=== PATIENT | female | born 1930 | race Asian ===

== ENCOUNTER 2016-06-06 15:06 | Emergency (ER) | payer OTHER ==
[2016-06-06 15:13] VITALS: O2SAT 95
--- NOTE | 2016-06-06 15:29 | EDPHY ---
H & P Stated Complaint: Tripped/fell;hit head and injured R arm;past hx ICB,no LOC HPI/ROS: CHIEF COMPLAINT: Fall, head injury HISTORY OF PRESENT ILLNESS: The patient says she was walking in her home today when she tripped and fell. She fell backwards into the right, striking her head on a vase. She did not lose consciousness to her knowledge. She does have a headache on the right side near the temporal region and into the right mandible. [id number] pain. Worse with palpation, movement and opening the mouth. Improved at rest. Does not radiate. No neck pain. No chest or back pain. No nausea or vomiting. No shortness of breath. No abdominal injury. No injury to the left arm or either leg. No pelvic pain. She does have pain in the right forearm that is also mild to moderate. It is difficult to write her sign forms here at the ER due to the pain in the forearm. No other associated complaints or modifying factors. No anticoagulants. REVIEW OF SYSTEMS: Ten systems reviewed and are negative unless otherwise noted in the HPI PERTINENT MEDICAL HISTORY: Prior subdural hematoma status post evacuation remotely EXAMINATION General Appearance: Alert, no distress Head: normocephalic, atraumatic. No Mendes sign. No raccoon eyes. No hematoma. There is tenderness to palpation of the right temporal region Eyes: Pupils equal and round, no conjunctival pallor or injection ENT, Mouth: Mucous membranes moist. Uvula midline. No erythema or edema. Airway is widely patent. Neck: Normal inspection, supple, non-tender. No bony tenderness. No crepitus. No step-off. No deformity. Respiratory: Lungs are clear to auscultation. No wheezing, rhonchi or crackles. Cardiovascular: Regular rate and rhythm. No murmur. Pulses intact distally. Gastrointestinal: Abdomen is soft and nontender Back: non-tender, no bony abnormalities Neurological: A&O, nonfocal, strength is 5/5 in all limbs. No pronator drift. Sensory intact. Skin: Warm and dry, no rash. Ecchymosis over the right temporal region. Extremities: Tenderness to palpation of the right forearm near the distal 1/3. There is no crepitus or deformity. Range of motion is fully intact and symmetric of the lower extremities. Range of motion of the left arm is fully intact. Range of motion of the right arm is intact with tenderness with supination or pronation. Neurovascular intact distal to the right forearm pain. All compartments are soft. Psychiatric: Mood and affect normal DIFFERENTIAL DIAGNOSES: Including but not limited to closed head injury, subdural hematoma, epidural hematoma, basilar skull fracture, concussion, forearm fracture, forearm contusion hematoma MDM: 3:25 p.m. Mechanical fall with closed head injury, headache and right forearm pain. Patient and her daughter are concerned as she had a fall in the past that no CT scan was performed, and she was found to have a subdural hematoma several weeks later. Her neuro exam is within normal limits. Given her injury and her concern, I have ordered a CT scan of the head. She is in no acute distress. 3:50 p.m. Notified by radiologist Dr. Wade. CT scan of the head is unremarkable for acute findings. There are age-related changes. No acute bleed. Forearm X-ray as read by me reveals no acute fracture dislocation. 5:00 p.m. Forearm x-ray reveals a distal radius fracture. She remains neurovascular intact. I will place her in a sugar-tong splint and sling. She remains awake and alert conversing appropriately. Her family had to leave momentarily but will be back to pick her up and she will be discharged to their care. I will refer her to Orthopedics for definitive care for the distal radius fracture. She is comfortable with this plan and discharged home stable condition. 5:45 p.m. Patient's family is now here as well. I have updated them regarding this scenario in the fracture. She will be discharged home to their care follow up with Orthopedics next week. SUPERVISION: This patient was independently evaluated without direct examination by the attending physician. Case was discussed with attending physician. Source: Patient, Family Exam Limitations: No limitations - Personal History Current Tetanus Diphtheria and Acellular Pertussis (TDAP): Unsure - Medical/Surgical History Other PMH: Subdural bleed - Social History Smoking Status: Never smoked Constitutional: Initial Vital Signs Temperature (C) 98.2 F 06/06/16 15:07 Heart Rate 82 06/06/16 15:07 Respiratory Rate 18 06/06/16 15:07 Blood Pressure 156/70 H 06/06/16 15:07 O2 Sat (%) 95 06/06/16 15:07 O2 Delivery Mode Room Air Allergies/Adverse Reactions: Penicillins Allergy (Severe, Verified 06/06/16 15:14) Anaphylaxis NSAIDS (Non-Steroidal Anti-Inflamma Allergy (Mild, Verified 06/06/16 15:14) GI upset procaine [From Novocain] Allergy (Verified 06/06/16 15:14) emycin Allergy (Severe, Uncoded 06/06/16 15:14) Hypotension Home Medications: Medication Instructions Recorded NK [No Known Home Meds] 06/06/16 Medical Decision Making - Diagnostics Imaging: Imaging Impressions Head CT 06/06/16 15:25 Impression: Negative noncontrast CT of the brain. Results called to Dr. Karl Ward at the time of the interpretation. Forearm X-Ray 06/06/16 15:26 Impression: 1. Minimally comminuted transverse fracture of the distal radial metaphysis with possible intra-articular extension. 2. Chondrocalcinosis. 3. Osteopenia Departure - Departure Disposition: Home, Routine, Self-Care Clinical Impression: Distal radius fracture, right Qualifiers: Encounter type: initial encounter Fracture type: closed Fracture morphology: unspecified fracture morphology Qualified Code(s): S52.501A - Unspecified fracture of the lower end of right radius, initial encounter for closed fracture Closed head injury Qualifiers: Encounter type: initial encounter Qualified Code(s): S09.90XA - Unspecified injury of head, initial encounter Condition: Good Instructions: Arm Fracture in Adults (ED), Head Injury (ED) Additional Instructions: Keep splint on at all times until seen by Orthopedics for definitive care. Ice and elevate the extremity. Ibuprofen or Tylenol as needed. The return to ER for worsening pain, sensory changes or increased swelling of the arm Referrals: UNKNOWN,DOCTOR [Other] - As per Instructions Crys Gomes MD [Medical Doctor] - As per Instructions Alexa Ortiz MD [Medical Doctor] - As per Instructions
[2016-06-06 18:31] VITALS: BP 128/64; PULSE 80; RESP 15; TEMP 98.8
== END 2016-06-06 18:31 | disposition home or self-care (01) ==
DX: S52.501A Unspecified fracture of the lower end of right radius, initial encounter for closed fracture (principal); S09.90XA Unspecified injury of head, initial encounter; W01.10XA Fall on same level from slipping, tripping and stumbling with subsequent striking against unspecified object, initial encounter; Y92.009 Unspecified place in unspecified non-institutional (private) residence as the place of occurrence of the external cause; Y93.01 Activity, walking, marching and hiking
CPT/HCPCS: 70450; 73090; 99284; A4565

== ENCOUNTER 2016-06-23 16:07 | Observation (INO) | payer OTHER ==
--- NOTE | 2016-06-23 16:19 | EDPHY ---
H & P Stated Complaint: fall 2 weeks ago/seen in ed/now with increasing cole/nausea Time Seen by Provider: 06/23/16 16:18 - Personal History Current Tetanus/Diphtheria Vaccine: Unsure - Medical/Surgical History Hx Asthma: No Hx Chronic Respiratory Disease: No Hx Diabetes: No Hx Cardiac Disease: No Hx Renal Disease: No Hx Cirrhosis: No Hx Alcoholism: No Hx HIV/AIDS: No Hx Splenectomy or Spleen Trauma: No Other PMH: Subdural bleed - Social History Smoking Status: Never smoked Constitutional: Initial Vital Signs Temperature (C) 36.7 C 06/23/16 16:12 Heart Rate 73 06/23/16 16:12 Respiratory Rate 17 06/23/16 16:12 Blood Pressure 125/59 H 06/23/16 16:12 O2 Sat (%) 95 06/23/16 16:12 O2 Delivery Mode Room Air Allergies/Adverse Reactions: Penicillins Allergy (Severe, Verified 06/23/16 16:12) Anaphylaxis NSAIDS (Non-Steroidal Anti-Inflamma Allergy (Mild, Verified 06/23/16 16:12) GI upset procaine [From Novocain] Allergy (Verified 06/23/16 16:12) emycin Allergy (Severe, Uncoded 06/06/16 15:14) Hypotension Home Medications: Medication Instructions Recorded NK [No Known Home Meds] 06/06/16 Medical Decision Making - Diagnostics Imaging Results: Imaging Impressions Head CT 06/23/16 16:27 Impression: 1. Development of subdural hygroma over the right posterior frontal to anterior parietal lobe superiorly with mild compression upon the underlying parenchyma. There may be stable subdural hygromas over the frontal and parietal lobes just above the sylvian fissure level bilaterally. 2. No hemorrhage, mass effect, or definite acute peripheral infarct. 3. 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 4. Stable moderate atrophy Findings discussed with Osiel Dejesus MD at 17:13 hour, 06/23/2016. ED Course/Re-evaluation: CHIEF COMPLAINT: Headache, nausea. HISTORY OF PRESENT ILLNESS: The patient is an 85-year-old female with a history of subdural hematoma who presents with headache and nausea. She fell 15 and hit her head. She was seen in the ER at that time. She had a negative head CT. She visited a neurologist a week ago and was diagnosed with a concussion. Today her headache and nausea worsening significantly. She admits ataxic gait. REVIEW OF SYSTEMS: A 10 point review of systems was performed and is negative with the exception of the elements mentioned in the history of present illness. PHYSICAL EXAM: HR, BP, O2 Sat, RR. Temp noted General Appearance: Alert, well hydrated, appropriate, and non-toxic appearing. Head: Atraumatic without scalp tenderness or obvious injury Eyes: Pupils equal, round, reactive to light and accommodation, EOMI, no trauma , no injection. Ears: Clear bilaterally, no perforation, normal landmarks Nose: Atraumatic, no rhinorrhea, clear. Throat: There is no erythema or exudates, no lesions, normal tonsils, mucus membranes moist. Neck: Supple, 2+ carotid upstroke, nontender, no lymphadenopathy. Respiratory: No retractions, no distress, no wheezes, and no accessory muscle use. Lungs are clear to auscultation bilaterally. Cardiovascular: Regular rate and rhythm, no murmurs, rubs, or gallops. Bilateral carotid, radial, dorsalis pedis, and posterior tibial pulses intact. Good capillary refill all extremities. Gastrointestinal: Abdomen is soft, nontender, non-distended, no masses, no rebound, no guarding, no peritoneal signs. Musculoskeletal: Normal active ROM of all extremities, atraumatic. Cast on right wrist. Neurological: Alert, appropriate, and interactive. The patient has normal DTRs and non-focal cranial nerves, motor, sensory, and cerebellar exam. Skin: No rashes, good turgor, no nodules on palpation. Past medical history: Right wrist fracture. Past surgical history: Subdural hematoma repair. Family history: N/A. Social history: Here with family. DIAGNOSTICS/PROCEDURES/CRITICAL CARE TIME: Study: CT of the head. Indication: Headache. Results: See Image Results section for official report. The study was read by the radiologist. I viewed the images myself on the PACS system. DIFFERENTIAL DIAGNOSIS: The differential diagnosis for the patient's headache included but was not limited to subarachnoid hemorrhage, migraine headache, tension headache and infectious causes such as meningitis, pharyngitis and sinusitis. MEDICAL DECISION MAKIN-year-old female with a history of subdural hematoma presents with worsening headache and nausea. These symptoms are similar to her previous subdural bleed which was fixed surgically. She did fall and hit her head 06/06 but was seen here and had a negative head CT at this time. An IV was established and labs ordered including CBC, CHEM, PTPTT. Head CT ordered. 1714: CT results conveyed to me by radiology as hypodense subdural hygroma. 1723: Consulted with Dr. Gomez, neurosurgery. She will consult with the patient in the ED. 1728: Consulted with Dr. Smith, hospitalist. He accepts admission. - Data Points Laboratory Results: Laboratory Results 06/23/16 16:40 06/23/16 16:40 06/23/16 06/23/16 06/23/16 16:40 16:40 16:40 WBC 5.69 10^3/uL 10^3/uL (3.80-9.50) RBC 4.25 10^6/uL 10^6/uL (4.18-5.33) Hgb 13.0 g/dL g/dL (12.6-16.3) Hct 38.2 % % (38.0-47.0) MCV 89.9 fL fL (81.5-99.8) MCH 30.6 pg pg (27.9-34.1) MCHC 34.0 g/dL g/dL (32.4-36.7) RDW 12.1 % % (11.5-15.2) Plt Count 269 10^3/uL 10^3/uL (150-400) MPV 9.0 fL fL (8.7-11.7) Neut % (Auto) 57.2 % % (39.3-74.2) Lymph % (Auto) 32.0 % % (15.0-45.0) Clarke % (Auto) 6.9 % % (4.5-13.0) Eos % (Auto) 2.8 % % (0.6-7.6) Baso % (Auto) 0.7 % % (0.3-1.7) Nucleat RBC Rel Count 0.0 % % (0.0-0.2) Absolute Neuts (auto) 3.26 10^3/uL 10^3/uL (1.70-6.50) Absolute Lymphs (auto) 1.82 10^3/uL 10^3/uL (1.00-3.00) Absolute Monos (auto) 0.39 10^3/uL 10^3/uL (0.30-0.80) Absolute Eos (auto) 0.16 10^3/uL 10^3/uL (0.03-0.40) Absolute Basos (auto) 0.04 10^3/uL 10^3/uL (0.02-0.10) Absolute Nucleated RBC 0.00 10^3/uL 10^3/uL (0-0.01) Immature Gran % 0.4 % % (0.0-1.1) Immature Gran # 0.02 10^3/uL 10^3/uL (0.00-0.10) PT 13.4 SEC SEC (12.0-15.0) INR 1.03 (0.83-1.16) APTT 28.2 SEC SEC (23.0-38.0) Sodium 140 mEq/L mEq/L (134-144) Potassium 4.0 mEq/L mEq/L (3.5-5.2) Chloride 107 mEq/L mEq/L (97-110) Carbon Dioxide 24 mEq/l mEq/l (22-31) Anion Gap 9 mEq/L mEq/L (8-16) BUN 19 mg/dL mg/dL (7-23) Creatinine 0.8 mg/dL mg/dL (0.6-1.0) Estimated GFR > 60 Glucose 102 mg/dL H mg/dL (70-100) Calcium 9.3 mg/dL mg/dL (8.5-10.4) Departure - Departure Disposition: [facility] Clinical Impression: Subdural hygroma Condition: Fair Referrals: SRINI GANDARA [Primary Care Provider] - As per Instructions Report Scribed for: Osiel Dejesus Report Scribed by: Dhaval Alfaro Date of Report: 06/23/16 Time of Report: 17:14
[2016-06-23 16:53] LABS: % IMMATURE GRANULYOCYTES 0.4 % (0.0-1.1); ABSOLUTE IMMATURE GRANULOCYTES 0.02 10^3/uL (0.00-0.10); ADD DIFF? NO; ADD MORPH? NO; ADD SCAN? NO; ATYPICAL LYMPHOCYTE FLAG 30 (0-99); FRAGMENT RBC FLAG 0 (0-99); HEMATOCRIT 38.2 % (38.0-47.0); LEFT SHIFT FLG 0 (0-99); LIPEMIA HEMOLYSIS FLAG 90 (0-99); MEAN CELL HEMOGLOBIN 30.6 pg (27.9-34.1); MEAN CELL VOLUME 89.9 fL (81.5-99.8); PLATELET CLUMPS FLAG 0 (0-99); PLATELET COUNT 269 10^3/uL (150-400); RED BLOOD CELL COUNT 4.25 10^6/uL (4.18-5.33); RED CELL DISTRIBUTION WIDTH 12.1 % (11.5-15.2)
[2016-06-23 17:04] LABS: INR 1.03 (0.83-1.16); PROTIME(PATIENT) 13.4 SEC (12.0-15.0)
[2016-06-23 17:05] LABS: APTT 28.2 SEC (23.0-38.0)
[2016-06-23 17:09] LABS: ANION GAP 9 mEq/L (8-16); CALCIUM 9.3 mg/dL (8.5-10.4); CARBON DIOXIDE 24 mEq/l (22-31); CHLORIDE 107 mEq/L (97-110); CREATININE 0.8 mg/dL (0.6-1.0); GLOMERULAR FILTRATION RATE > 60; GLUCOSE 102 mg/dL (70-100); SODIUM 140 mEq/L (134-144)
[2016-06-23 19:03] LABS: COLOR YELLOW; LEUKOCYTE ESTERASE,URINE 1+ (NEGATIVE); NITRITE,URINE POSITIVE (NEGATIVE)
--- NOTE | 2016-06-23 19:06 | GHP ---
[f rep st] HISTORY AND PHYSICAL DATE OF ADMISSION: 06/23/2016 CHIEF COMPLAINT: Headache. HISTORY OF PRESENT ILLNESS: This is an 85-year-old female with a previous history of a subdural hem atoma drainage in 2009 at the [facility] who has had chronic headache, she cannot describe for how long. However, her headaches did proceed a fall approximately 2 weeks ago. She s tates the fall 2 weeks ago occurred because she began speeding up her gait and was unable to catch h erself, and fell. She fell, broke her wrist, and did strike her head losing consciousness. She had a head CT at that point in time which revealed bilateral subdural hygromas, right greater than left , approximately a centimeter and 5 mm. She was discharged home after treating her wrist fracture an d was seen by Neurology for concussion. She states that she has continued to have intermittent head aches with no particular exacerbating factors. It is not worse any time of the day or any particula r position. It is not associated with photophobia or phonophobia, but over the last couple of days they have gotten mildly worse and are associated with some nausea, so she decided to come in. She h ad a repeat head CT that revealed stable bilateral hygromas. She denies any fevers, chills, nausea, vomiting, or neck stiffness. She denies any numbness, tingling, weakness, vision changes, slurred speech, loss of control of bowel or bladder, or any other complaints of pain. PAST MEDICAL HISTORY: Positive for subdural hematoma, concussion, and distal radius fracture. PAST SURGICAL HISTORY: Includes bur hole evacuation of subdural hematoma, and tonsillectomy. SOCIAL HISTORY: She lives independently. Her children are at bedside. She denies any alcohol, tob acco, or illicit drugs. PAST FAMILY MEDICAL HISTORY: There is no history of coagulopathies or other contributing factors. ALLERGIES: To penicillins, NSAIDs, procaine, and erythromycin. HOME MEDICATIONS: No home medications. REVIEW OF SYSTEMS: Complete 12 point review of systems performed by myself was negative, except as stated above. VITAL SIGNS: Blood pressure is 146/74, respiratory rate 16, heart rate is 84, her temp is 36.6, sat urating 98% on room air. LABORATORY DATA: White blood cell count 5.69, hemoglobin 13, hematocrit 38.2, platelets are 269. P T is 13.4, INR is 1.03, PTT is 28.2. Sodium 140, potassium 4.0, chloride 107, CO2 of 24, BUN 19, cr eatinine 0.8, glucose 102. Head CT reveals bilateral subdural hygromas that are stable compared to June 08, 2016, just above t he left sylvian fissure over the frontal and anterior parietal lobes, measuring approximately 10 mm on the right and 6 mm on the left. There is some mild mass effect on the parenchyma; however, there is no shift. Ventricle cisterns and sulci are widely consistent with stable moderate atrophy. No hydrocephalus, masses, midline shift, herniation, or subdural hematoma. No intraparenchymal hemorrh age or mass effect. Stable to moderate hypodensities in the white matter of bilateral cerebral taya spheres. There is no acute peripheral cerebral infarct. Anterior sclerotic calcifications are note d in the distal ICA in the parasellar location bilaterally. Bone windows reveal no fractures. PHYSICAL EXAMINATION: She is alert, oriented x3. Pupils are equal, round, reactive to light and ac commodation. External ocular muscles are intact. There is no facial asymmetry or tongue deviation. Sensation is intact V1, V2, V3 distributions of the 5th cranial nerve bilaterally. Strength is 5/ 5 to bilateral deltoids, biceps, triceps, left wrist flexors, wrist extensors, and hand intrinsics. The right wrist is immobilized. Strength is 5/5 to bilateral iliopsoas, quadriceps, hamstrings, do rsiflexors, plantar flexors, EHLs. DTRs are +2/4 biceps and left brachioradialis, patellar, and Ach illes. She has no drift. She has no Mendoza's or clonus. IMPRESSION AND PLAN: This is an 85-year-old female with mild headache and bilateral subdural hygrom as that are relatively stable compared with June 08. She has had headache prior to her fall and I think these are nontraumatic in nature. Given the fact that she has had a mild increase in headache , it would be reasonable at her age to watch her overnight. Did discuss the possibility of trying s ome tranexamic acid; however, these collections are not blood, they are likely CSF and likely not to resorb. We will at least attempt it as she has no contraindications to see if this will help mitig ate some of her complaints and she will likely be discharged in the morning. No repeat head CT. Pl ease call with any changes in neurologic status. /[id number]/MODL
[2016-06-23 19:13] LABS: BACTERIA TRACE /hpf (NONE SEEN); MUCUS TRACE /lpf (NONE-1+); WBC,URINE 25-50 /hpf (0-3)
[2016-06-23 19:14] LABS: RBC,URINE NONE SEEN /hpf (0-3)
[2016-06-23] MEDS ORDERED: CALCIUM CARBONATE 500 MG CHEWABLE TAB PO PRN (21:54)
[2016-06-23] MEDS ORDERED: ACETAMINOPHEN 500 MG TAB PO PRN (21:54)
[2016-06-23] MEDS ORDERED: ONDANSETRON 4 MG/2 ML VIAL IVP PRN (21:54)
[2016-06-23] MEDS ORDERED: ACETAMINOPHEN 325 MG TAB PO PRN (21:54)
[2016-06-23] MEDS ORDERED: ONDANSETRON DISINTEGRATING 4 MG TAB PO PRN (21:54)
--- NOTE | 2016-06-23 22:41 | GHP ---
[f rep st] HISTORY AND PHYSICAL DATE OF ADMISSION: 06/23/2016 HISTORY: The patient is a pleasant 85-year-old female with history of remote subdural hematoma and chronic headaches, who presents with worsening headache, as well as an episode of nausea this mornin g. Her nausea got worse, and then she had a bowel movement, and then she felt better. She did fall 2 weeks ago and was seen here in our emergency department where a scan at that time showed what was read as negative noncontrast CT of the brain, other than atrophy with bilateral subdural hygromas, without evidence of acute hemorrhage. I have compared the CT [id number] myself, and it does appea r that the scan represents larger hygromas today, more on that in the imaging section of this Histor y and Physical. She was seen by Neurosurgery, who felt that they were stable compared to a couple o f weeks ago, noting mild mass effect, no shift. The patient has not had diarrhea, fever, chills, sputum, or shortness of breath. REVIEW OF SYSTEMS: Complete 10-point review of systems has been documented, negative except as note d in the HPI. PAST MEDICAL HISTORY: Subdural hematoma 6 years ago. ALLERGIES: Penicillin, NSAIDs, procaine, erythromycin. HOME MEDICATIONS: Multivitamin, vitamin B12, vitamin D3, calcium carbonate, and Tylenol. SOCIAL HISTORY: She lives at the [facility]. Nonsmoker, nondrinker. Family present at the bedside. FAMILY HISTORY: Parents . PHYSICAL EXAMINATION: VITAL SIGNS: Temp 36.7, blood pressure 141/86, pulse 74, breathing 16 times a minute, 96% on room air. GENERAL: No acute distress. HEENT: Sclerae anicteric. Oropharynx abbie ar. Mucous membranes moist. NECK: Supple without lymphadenopathy or JVD. LUNGS: Clear to auscul tation bilaterally. HEART: S1, S2 without murmurs. ABDOMEN: Soft, nontender, nondistended. LOWE R EXTREMITIES: Without edema. Calves nontender. SKIN: Without rash. NEUROLOGIC: Grossly nonfoc al. LABORATORY VALUES: Sodium 140, potassium 4.0, chloride 107, bicarb 24, BUN 19, creatinine 0.8, gluc ose 102. UA showed 25-50 white cells, otherwise unremarkable. Coags normal. White count 5.7, hematocrit 38, platelets 269. Noncontrast head CT shows what appeared to me and the ER doctor to be enlarging subdural hygromas; h owever, Neurosurgery has a different opinion. I have discussed the case with Dr. [facility]iel [facility]. ASSESSMENT/PLAN: An 85-year-old female with history of subdural and chronic headache here, with pos sibly enlarging subdural hygromas. 1. Subdural hygromas. Neurosurgery has seen the patient and feels that additional imaging is not n eeded. Will follow clinically. She does not suspect active bleeding, although she did suggest reynolds examic acid, although it has not been ordered. I will leave this to the discretion of Neurosurgery. 2. Nausea. It is unclear what to make of this; this seems to be a chronic problem. She does not h ave midline shift or hypertension or other evidence of elevated intracranial pressure. 3. Chronic headache. Will continue her scheduled Tylenol. 4. Prophylaxis. Pharmacologic prophylaxis contraindicated given her subdural. 5. Disposition: Observation status. Will have PT and OT see her. /[id number]/MODL
--- NOTE | 2016-06-24 07:49 | NEUSURGPN ---
Assessment/Plan: 85 yo female with headache (present prior to fall). Head CT with bilateral subdural hygromas - neuro stable - recommend tranexamic acid 650 mg po BID to help absorb the subdural hygromas ( ordered, and script in chart) - no surgical intervention - plan for repeat head CT in 3-4 weeks (script in chart) - ok for discharge per neurosurgery Discussed with Dr. Gomez Subjective: Headaches comes and goes. Admits to nausea. Objective: Awake. Alert. PERRL Facial expression symmetrical Muscle strength full Following commands - Physician Discussed Patient with Dr.: Gomez Neurosurgery Physical Exam - Vitals, I&O, Labs I and O 06/23/16 06/24/16 06/25/16 05:59 05:59 05:59 Output Total 202 Balance -202 Weight 52 kg Output: Urine (ml) 202 Toilet 202 Other: Number of Voids Toilet 1 Vital Signs Temp Pulse Resp BP Pulse Ox 36.4 C 78 18 120/59 L 96 06/24/16 04:00 06/24/16 04:00 06/24/16 04:00 06/24/16 04:00 06/24/16 04:00 ICD10 Worksheet Patient Problems: Problems Problem Status Onset Subdural hygroma Acute
[2016-06-24 07:57] VITALS: RESP 16
[2016-06-24] MEDS ORDERED: TRANEXAMIC ACID 650 MG TAB PO SCH (09:00)
[2016-06-24] MEDS ORDERED: MULTIVITAMINS 1 EACH TAB PO SCH (09:00)
[2016-06-24] MEDS ORDERED: CYANO/VITAMIN B12 1000 MCG TAB PO SCH (09:00)
[2016-06-24] MEDS ORDERED: CALCIUM CARBONATE 500 MG TAB PO SCH (09:00)
[2016-06-24] MEDS ORDERED: CHOLECALCIFEROL VIT D3 2,000 UNITS TAB/CAP PO SCH (09:00)
--- NOTE | 2016-06-24 09:42 | HOSPPROG ---
Hospitalist Progress Note Assessment/Plan: 85 yo female with chronic headache (present prior to fall) and an episode of nausea. Head CT with bilateral subdural hygromas. *Subdural hygromas tranexamic acid 650 mg bid/ neurosurgery ordered and left script no surgical intervention plan for repeat head CT in 3-4 weeks (script in chart) ok for discharge per neurosurgery * nausea patient says this occurs in the morning *Hypotension bp low this morning will have it rechecked prior to dc *right wrist fx this occurred a few weeks ago to get cast off in a few weeks *Gait instability she feel approximately 2 weeks ago suspect she may be hypotensive in the mornings causing some of her problems to get orthostatics this morning * chronic headaches Continued on scheduled Tylenol *Plan: dc today if bp ok and further f/u w neurosurgery Subjective: Nyasia is c/o some nausea this morning. Objective: Vital Signs Temp Pulse Resp BP Pulse Ox 36.8 C 79 16 99/59 L 95 06/24/16 07:55 06/24/16 07:55 06/24/16 07:55 06/24/16 07:55 06/24/16 07:55 06/23/16 06/24/16 06/25/16 05:59 05:59 05:59 Output Total 202 Balance -202 PT 13.4 SEC (12.0-15.0) 06/23/16 16:40 INR 1.03 (0.83-1.16) 06/23/16 16:40 - Physical Exam Constitutional: no apparent distress, appears nourished, not in pain Eyes: PERRL Ears, Nose, Mouth, Throat: hearing normal Cardiovascular: regular rate and rhythym Respiratory: no respiratory distress Gastrointestinal: normoactive bowel sounds Skin: warm Musculoskeletal: other (right wrist in spling) Neurologic: AAOx3 Psychiatric: interacting appropriately, not encephalopathic ICD10 Worksheet Patient Problems: Problems Problem Status Onset Subdural hygroma Acute
--- NOTE | 2016-06-24 11:04 | PDIAF ---
- Diagnosis Diagnosis: bilateral subdural hygromas/othostasis/gait instability Code Status: Full Code - Medication Management Discharge Medications: Medications to Continue on Transfer Acetaminophen [Tylenol ES 500 mg (*)] 500 mg PO TID PRN 06/23/16 [Last Taken 04/10 08:00] Calcium Carbonate [Oyster Shell Calcium 500 mg (*)] 500 mg PO DAILY 06/23/16 [ Last Taken Unknown] Calcium Carbonate [Tums 500MG (*)] 500 mg PO TID PRN 06/23/16 [Last Taken 08:00] Cholecalciferol Vit D3 [Vitamin D3 2000 units tab (OTC)] 2,000 units PO DAILY [Last Taken Unknown] Cyanocobalamin [Vitamin B12 (*)] 1,000 mcg PO DAILY 06/23/16 [Last Taken Unknown ] Multivitamins [Multivitamin (*)] 1 each PO DAILY 06/23/16 [Last Taken Unknown] Acetaminophen [Tylenol 325mg (*)] 650 mg PO Q4HRS PRN #0 tab 06/24/16 [Last Taken Unknown] Tranexamic Acid 650 mg PO BID tab 06/24/16 [Last Taken Unknown] Discharge Medications: Refer to the Discharge Home Medication list for PRN reason. - Orders Services needed: Physical Therapy, Occupational Therapy Diet Recommendation: no restrictions on diet Diet Texture: Regular Texture Diet - Follow Up Care Current Providers and Referrals: Christine Gomez DO [Doctor of Osteopathy] - SRINI GANDARA [Primary Care Provider] - As per Instructions
--- NOTE | 2016-06-24 11:08 | GDS ---
[f rep st] DISCHARGE SUMMARY DISCHARGE DIAGNOSES: 1. Subdural hygromas, concern that these were increasing in size. 2. Nausea. 3. Hypotension. 4. Recent right wrist fracture. 5. Gait instability. 6. Chronic headaches. BRIEF HISTORY: This patient is a very sweet 85-year-old woman with a history of subdural hematoma and chronic headaches. She presented to the emergency room with worsening headache as well as an episode of nausea. Her nausea got worse then she had a bowel movement and this improved. She had a fall approximately 2 weeks ago and was seen in our ER. At that time, she had a negative contrast CT of the brain, other than atrophy, with bilateral subdural hygromas. On this admission she had a CT scan of her head that showed development of subdural hygroma over the right posterior frontal to anterior parietal lobe superiorly, with mild compression upon the underlying parenchyma. There may be stable subdural hygromas over the frontal parietal lobes just about the sylvian fissure level bilaterally. Subsequently, she was seen and evaluated by Dr. Christine Gomez, who felt that the subdural hygromas are relatively stable compared with the one on June 08, 2016. She was watched overnight. She will be treated with tranexamic acid. She has been left a prescription on the chart and will take this twice daily and further followup with neurosurgical services. HOSPITAL COURSE PER PROBLEM: 1. Subdural hygromas. She will be on tranexamic acid twice daily. There is no surgical intervention indicated. The plan is for her to get a repeat CT in 3 -4 weeks. Per Neurosurgery, they feel she is okay for discharge. 2. Nausea. The patient said this has been occurring for a long time. I encouraged her to continue [place] and try a warm water bottle. 3. Hypotension. Will have her blood pressure rechecked this morning prior to discharge. 4. Right wrist fracture. This occurred a few weeks ago when she fell. She is to get that splint removed in a few weeks. 5. Gait instability. I suspect she may be having some hypotension in the morning. I explained to her to get out of bed slowly, to go from lying to sitting to standing slowly. 6. Chronic headaches. Continue on scheduled Tylenol. PENDING LABS AND TESTS: None. CONDITION AT DISCHARGE: Stable. Blood pressure is 110/60, heart rate is 79, respiratory rate is 16, O2 saturation on room air 95%, temperature is 36.8 Celsius. MEDICATIONS AT DISCHARGE: Please see the MAR. DISCHARGE INSTRUCTIONS: 1. To return to the ER if she has any new neurological changes. 2. To get out of bed slowly. 3. Follow up with Neurosurgery to get a repeat CT scan of her head. 4. Home care will be following up with her. /[id number]/MODL MTDD
[2016-06-24 12:59] VITALS: BP 103/60; PULSE 70; TEMP 97.9; O2SAT 94
== END 2016-06-24 14:59 | disposition home health service (06) ==
LOC: F3N 19:44
PROVIDERS: ADMIT Internal Medicine; ATTEND Internal Medicine
DX: R51 Headache (principal); R11.0 Nausea; S52.501D Unspecified fracture of the lower end of right radius, subsequent encounter for closed fracture with routine healing; I95.9 Hypotension, unspecified; R29.6 Repeated falls; G93.89 Other specified disorders of brain; S06.5X9S Traumatic subdural hemorrhage with loss of consciousness of unspecified duration, sequela
CPT/HCPCS: 70450; 97162; 97165; 99285; G0378; G8978; G8979; G8987; G8988; G8989

== ENCOUNTER → 2016-07-16 | Outpatient (CLI) | payer OTHER | LOC: FIMAGING 14:10 | PROVIDERS: ATTEND Physician Assistant Surgical | DX: I62.03 Nontraumatic chronic subdural hemorrhage (principal) ==

== ENCOUNTER → 2016-09-21 | Outpatient (CLI) | payer OTHER | LOC: FIMAGING 13:51 | PROVIDERS: ATTEND Physician Assistant Surgical | DX: G31.9 Degenerative disease of nervous system, unspecified (principal); I67.82 Cerebral ischemia ==